=== PATIENT | male | born 2000 | race Caucasian/White ===

== ENCOUNTER 2022-06-26 01:06 | Emergency (ER) | payer OTHER ==
[2022-06-26 05:32] LABS: C. TRACHOMATIS BY PCR NOT DETECTED; N. GONORRHOEAE BY PCR NOT DETECTED
== END 2022-06-26 06:49 | disposition home or self-care (01) ==
LOC: JD.ED 01:06
DX: K62.89 Other specified diseases of anus and rectum (principal); Z87.891 Personal history of nicotine dependence
CPT/HCPCS: 87491; 87591; 99284

== ENCOUNTER 2022-06-28 16:35 | Emergency (ER) | payer OTHER ==
[2022-06-28] MEDS ORDERED: ARIPiprazole 5 MG Tab PO ONE (17:24)
[2022-06-28] MEDS ORDERED: LORazepam 1 MG Tab PO ONE (18:30)
[2022-06-28] MEDS ORDERED: Haloperidol Lactate 5 MG/ML SDV IM ONE (19:06)
[2022-06-28] MEDS ORDERED: LORazepam 2 MG/ML SDV IM ONE (19:08)
[2022-06-28] MEDS ORDERED: Dextrose 5%-Lactated Ringers 1,000 ML IV SCH (19:15)
[2022-06-28 20:41] LABS: ESTIMATED GFR 99 mL/min (>60)
[2022-06-28 20:52] LABS: CORONAVIRUS COVID-19 NAA NEGATIVE (NEGATIVE)
[2022-06-28] MEDS ORDERED: Sodium Chloride 0.9% 1,000 ML IV ONE (21:36)
[2022-06-28] MEDS ORDERED: Sodium Chloride 0.9% 1,000 ML IV SCH (21:45)
[2022-06-29] MEDS ORDERED: Dextrose 5%-Lactated Ringers 1,000 ML IV SCH (07:15)
[2022-06-29] MEDS ORDERED: ARIPiprazole 5 MG Tab PO ONE (08:24)
== END 2022-06-29 13:23 | disposition home or self-care (01) ==
LOC: JD.ED 16:35
DX: F32.1 Major depressive disorder, single episode, moderate (principal); Z20.822 Contact with and (suspected) exposure to COVID-19
CPT/HCPCS: 0240U; 36415; 80053; 80143; 80179; 80306; 80307; 81001; 84443; 85025; 86140; 93005; 96360; 96361; 96372; 99284; A9270; J1630; J2060; J7030; J7121

== ENCOUNTER 2022-07-01 10:20 | Emergency (ER) | payer OTHER ==
[2022-07-01] MEDS ORDERED: OLANZapine 10 MG Vial IM ONE (15:50)
[2022-07-01] MEDS ORDERED: OLANZapine 5 MG Tab PO ONE (16:51)
[2022-07-01] MEDS ORDERED: diphenhydrAMINE 50 MG Cap PO ONE (16:59)
[2022-07-02] MEDS ORDERED: OLANZapine 5 MG Tab PO STA (08:45)
== END 2022-07-02 14:31 ==
LOC: JD.ED 10:20
DX: F28 Other psychotic disorder not due to a substance or known physiological condition (principal); Z20.822 Contact with and (suspected) exposure to COVID-19
CPT/HCPCS: 36415; 70450; 80053; 80143; 80179; 80307; 84443; 85025; 87635; 99285; A9270; Q0163; U0002